=== PATIENT | female | born 1975 | race Caucasian/White ===

== ENCOUNTER 2025-04-10 13:23 | Emergency (ER) | payer SELFPAY ==
[2025-04-10 13:37] VITALS: BP 114/63; PULSE 76; RESP 20; TEMP 36.7; O2SAT 98
--- NOTE | 2025-04-10 14:40 | W.ED.BACK ---
HPI - Back Pain/Injury General: Chief Complaint: Back Pain/Injury Stated Complaint: back pain Time Seen by Provider: 04/10/25 14:31 Source: patient Mode of arrival: ambulatory Limitations: no limitations History of Present Illness: Patient is a 49-year-old female with chronic back pain. She states over the past week her back pain has increasingly gotten worse. Says that the pain progressively gets worse throughout the day, she has shooting pains down her left leg, and tingling down her right leg following the L5 dermatome. 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 She denies injury to her back, saddle anesthesia, urinary/bowel incontinence, weakness in her lower extremities, redness/swelling or color changes in her lower extremities. She is able to ambulate fine. She has a history of an L5-S1 spinal fusion in 2010. Has an appointment with her PCP on to try and get established with a pain management clinic. MD elicited complaint: back pain Pertinent past history: prior back pain and back surgery (L5-S1 fusion) Onset (ago): week(s) (approx. 1 week ago) Timing: progressively worsening Severity: moderate Similar Symptoms Previously: Yes Quality: sharp (down L leg), dull, aching and tingling (down R leg) Location: lumbar spine Radiation: left upper leg, right upper leg, left leg below the knee and right leg below the knee Exacerbating factors: movement and walking Relieving factors: none Associated symptoms: Reports no associated symptoms; Deny abdominal pain, chills, difficulty walking, fatigue, fever(s), nausea or vomiting Work related injury: No Related Data Previous Rx's ?Medication ?Instructions ?Recorded hydrocodone 5 mg-acetaminophen 325 1 tab PO .q 6-8 PRN pain #10 tabs 04/10/25 mg tablet methocarbamol 500 mg tablet 1,000 mg (2 x 500 mg) PO Q8H #30 04/10/25 tabs methylprednisolone 4 mg tablets in See Rx Instructions PO .COMPLEX 04/10/25 a dose pack (Medrol (Alexander)) #21 ea Allergies Allergy/AdvReac Type Severity Reaction Status Date / Time bupropion (From Wellbutrin) Allergy Unknown Verified 04/10/25 13:36 latex Allergy Unknown Verified 04/10/25 13:36 tramadol Allergy ALGY-Rash Verified 04/10/25 13:36 Review of Systems Const: Denies: fever(s), chills, body aches, change in appetite, change in weight, fatigue, malaise or night sweats Card: Denies: chest pain, palpitations or lightheadedness Resp: Denies: dyspnea, productive cough or pain on inspiration GI: Denies: abdominal pain, nausea or vomiting : Denies: flank pain or difficulty voiding Musc: Reports: back pain (lumbar back pain ), extremity pain (sharp pain down L leg) and other (burning/tingling down R leg); Denies: neck pain, extremity swelling, joint pain, joint swelling, limited range of motion or muscle weakness Neuro: Denies: headache(s), numbness in extremities, weakness in extremities, difficulty walking or dizziness Physical Exam Const: COMMON NORMALS: no acute distress, average body habitus, patient oriented x3, healthy appearing, alert and well nourished GENERAL APPEARANCE: cooperative ORIENTATION/CONSCIOUSNESS: Yes awake, Yes oriented to person, Yes oriented to place and Yes oriented to time HENMT: COMMON NORMALS: normocephalic and atraumatic HEAD & SCALP: normal to inspection, normocephalic and atraumatic Neck/C-Spine: COMMON NORMALS: full ROM GENERAL: Yes normal visual inspection and Yes trachea midline CERVICAL SPINE: Yes cervical ROM normal Chest: COMMONS NORMALS: normal inspection of the chest CHEST: Yes Symmetrical chest wall rise Resp: COMMON NORMALS: normal respiratory effort and No use of accessory muscles EFFORT & INSPECTION: Yes symmetric chest movement Cardio: COMMON NORMALS: regular rate and regular rhythm RATE: regular rate RHYTHM: regular rhythm : COMMON NORMALS: Yes no CVA tenderness BLADDER/KIDNEY EXAM: Yes no CVA tenderness Back/Pelvis: COMMON NORMALS: no CVA tenderness THORACIC SPINE/UPPER BACK: Yes normal to inspection, Yes thoracic ROM normal and No thoracic spinal tenderness LUMBAR SPINE/LOWER BACK: Yes pain with ROM, Yes lumbar spinal tenderness and Yes other soft tissue findings (scar midline from previous surgery) PELVIS: Yes buttocks normal SACRUM: no tenderness COCCYX: no tenderness Extremity: COMMON NORMALS: normal to inspection, full ROM, capillary refill normal, no clubbing, cyanosis or edema and no calf tenderness GENERAL: Yes normal exam except as noted RIGHT LOWER EXTREMITY: Yes lower leg (admits to tingling down leg, neurovascular intact) Right lower leg: Yes inspection (normal), Yes palpation (normal), Yes neurovascular exam (normal) and Yes other LEFT LOWER EXTREMITY: Yes lower leg (admits to pain w walking down L leg) Left lower leg: Yes inspection (normal), Yes palpation (normal) and Yes neurovascular exam (normal) Neuro: COMMON NORMALS: patient oriented x3, moves all extremities, no focal motor deficits, no sensory deficits noted and gait normal SENSORIUM/ORIENTATION: Yes alert, Yes oriented to person, Yes oriented to place and Yes oriented to time MOTOR EXAM: 5/5 motor strength present throughout Skin: COMMON NORMALS: no rashes or lesions noted GENERAL SKIN EXAM: no rashes or lesions noted Course Vital Signs: Vital signs: Vital Signs Temperature 98.0 F 04/10/25 13:37 Pulse Rate 76 04/10/25 13:37 Respiratory Rate 20 H 04/10/25 13:37 Blood Pressure 114/63 04/10/25 13:37 Pulse Oximetry 98 04/10/25 13:37 MDM - Back Pain/Injury Medical Decision Making Patient has no red flags on history or physical examination. I do not feel emergent imaging would ultimately change much management at this time. She does have follow-up with primary care on . Had initially prescribed her ibuprofen, methocarbamol, and steroids. Patient asking for stronger pain medications as she has been taking ibuprofen at home without much relief. She has an allergy to tramadol. Will prescribe her a very small amount of pain medications that can get her to her primary care appointment. Medical Records I reviewed the patient's medical records. No radiology studies performed this visit Discharge Plan Discharge Patient Disposition: Home Clinical Impression: Acute on chronic low back pain Condition: Stable Prescriptions: New methocarbamol 500 mg tablet 1,000 mg PO Q8H Qty: 30 0RF methylprednisolone [Medrol (Alexander)] 4 mg tablets,dose pack See Rx Instructions .ROUTE .COMPLEX Qty: 21 0RF Rx Instructions: orally per package directions hydrocodone-acetaminophen 5-325 mg tablet 1 tab PO .q 6-8 PRN (Reason: pain) Qty: 10 0RF Discharge Orders: Discharge ED (Routine); Ordered 04/10/25 Ordered By: Soraya Morales Patient Instructions: Patient Portal & Julien Instructions Activity Restrictions/Additional Instructions: Please follow-up at the [facility] on as scheduled. You may fill the prescribed medications over the next several days to hopefully improve your back discomfort. You may also use ice and heat. Limit lifting is much as possible. Print Language: Malaysian Coding Level of Care Code ED Purchasing And Claims Supervisor for Chilango Perry
[2025-04-10] MEDS: orphenadrine 30 mg/mL Inj 2 mL 60 MG IM (15:41)
[2025-04-10] MEDS: ketorolac 60 mg/2 mL INJ IM (15:41)
[2025-04-10] MEDS: dexamethasone 10 mg/mL INJ 8 MG IM (15:41)
[2025-04-10] MEDS: HYDROmorphone 0.5 MG/0.5 ML INJ 1 MG IM (16:30)
== END 2025-04-10 16:46 | disposition home or self-care (01) ==
PROVIDERS: Emergency Provider Physician Assistant
DX: M54.50 Low back pain, unspecified (principal)
CPT/HCPCS: 96372; 99284; J1100; J1171; J1885; J2360

== ENCOUNTER → 2025-04-17 13:30 | Outpatient (BNVA) | payer SELFPAY | PROVIDERS: PCP Family Medicine; Visit Provider Family Medicine | DX: Z11.59 Encounter for screening for other viral diseases (principal); Z11.4 Encounter for screening for human immunodeficiency virus [HIV] | CPT/HCPCS: 80053; 80061; 84443; 85025; 86803; 87806 ==

== ENCOUNTER 2025-06-11 11:18 | Emergency (ER) | payer BC, MEDICAID, SELFPAY ==
--- OUTSIDE RECORDS SUMMARY | 2020-04-02 04:54 | XMS_ITS | Continuity of Care Document ---
Author Organization [facility] Address [address] [place] [address] Phone Care Team Providers Care Fire Prevention Inspector Name Role Phone Pushpa URIAH CLUB ATTENDANT-Luis Eduardo Kathy Unavailable Unava ilable Allergies, Adverse Reactions, Alerts Substance Reaction Status Criticality BUPROPION HCL RashRash Active No Information latex Rash Active No Information codeine Rash Active No Information Medications Medication Instructions Dosage Effective Dates (start - stop) Status Comments cyclobenzaprine 10 mg tablet take 1 tablet by oral route 3 times every day 10 MG - Active gabapentin 300 mg capsule take 2 capsule by oral route 3 times every day 600 MG - Active VITAMIN D 2000 IU TAB TAKE 1 TABLET BY MOUTH EVERY DAY 1 tablet - Active SIMVASTATIN 20MG TAB TAKE 1 TABLET BY MOUTH EVERY EVENING - Active SERTRALINE 50MG TAB TAKE 1 TABLET BY MOUTH EVERY DAY - Active metformin 500 mg tablet take 1 tablet by oral route 2 times every day with morning and evening meals 500 MG - Active hydroxyzine HCl 25 mg tablet take 1 tablet by oral route 3 times every day as needed 25 MG - Active diclofenac sodium 75 mg tablet,delayed release take 1 tablet by oral route 2 times every day 75 MG - Active duloxetine 60 mg capsule,delayed release take 1 capsule by oral route every day - Active gabapentin 300 mg capsule take 2 capsule by oral route 3 times every day 600 MG - No Longer Active cyclobenzaprine 10 mg tablet take 1 tablet by oral route 3 times every day 10 MG - No Longer Active Procedures Procedure Date PSYCH DIAGNOSTIC EVALUATION Completion Of The DLA-20 Assessment OFFICE/OUTPATIENT VISIT, EST ROUTINE VENIPUNCTURE COMPLETE CBC W/AUTO DIFF WBC COMPREHEN METABOLIC PANEL GLYCATED HEMOGLOBIN TEST ASSAY THYROID STIM HORMONE LIPID PANEL ASSAY OF VITAMIN D OFFICE/OUTPATIENT VISIT, EST IMMUNIZATION ADMIN CCIIV4 VAC NO PRSV 0.5 ML IM OFFICE/OUTPATIENT VISIT, EST PREV VISIT, NEW, AGE 18-39 OFFICE/OUTPATIENT VISIT, EST ROUTINE VENIPUNCTURE COMPLETE CBC W/AUTO DIFF WBC COMPREHEN METABOLIC PANEL GLYCATED HEMOGLOBIN TEST ASSAY THYROID STIM HORMONE ASSAY OF VITAMIN D LIPID PANEL Post Op Post Op Extraction, Erupted Tooth Or Exposed Ginny t (Elevati Extraction, Erupted Tooth Or Exposed Ginny t (Elevati Local Anesthesia OFFICE/OUTPATIENT VISIT, EST PSYCH DIAG EVAL W/MED SRVCS Comprehensive Evaluation Caries Risk Assessment And Documentation High Risk Panoramic Film Intraoral Complete Series OFFICE/OUTPATIENT VISIT, EST OFFICE/OUTPATIENT VISIT, NEW Advance Directives Directive Yes / No Effective Date File Name No Information Encounters Encounter Description Practice Location Reason(s) For Visit Diagnoses Date Provider Providers Copied on Encounter [facility], [address], [place], [id number], [place] tel:[phone] [facility] No Information 0 Pushpa Chavez. [address] [place] [address] [address], [id number] [place], [id number], [place]. tel: [phone] [facility], [address], [place], [place], [id number], [place] tel:[phone] [facility] No Information 0 [facility]. [address] [facility] [address], [id number] 0, [place], [place], [id number], [place]. tel:[phone] PSYCH DIAGNOSTIC EVALUATION [facility], [address], [place], [place], [id number], [place] tel:[phone] [facility] Post-traumat ic stress disorderMajo r depressive disorder, recurrent severe without psychotic featuresCann abis use disorder, moderateGene ralized anxiety disorder 0 Romaine Judd. [address], [place], [place], [id number], [place]. tel:[phone] Referring Provider: Binta Gavin, [address], [place], [address]. tel:[phone] [facility], [address], [place], [place], [id number], [place] tel:[phone] [facility] No Information 0 Mahan Kathy. [address] [place] [address] [address], [id number] 0, [place], [place], [id number], [place]. tel:[phone] [facility], [address], [place], [place], [id number], [place] tel:[phone] [facility] No Information 0 Mahan Kathy. [address] [facility] [address], [id number] 0, [place], [place], [id number], [place]. tel:[phone] [facility], [address], [place], [place], [id number], [place] tel:[phone] [facility] No Information 0 [facility]. [address] [facility] [address], [id number] 0, [place], [id number], [place]. tel: [phone] [facility], [address], [place], [place], [id number], [place] tel:[phone] [facility] lab management (chief complaint) Vitamin D deficiencyHy perlipidemia , unspecified 9 Tasiasulma Chavez. [address] [place] [address] 212, [id number] 0, [place], [id number], [place]. tel: [phone] OFFICE/OUTPA TIENT VISIT, EST [facility], [address], [place], [place], [id number], [place] tel:[phone] [facility] Provider Note- H Pushpa CLUB ATTENDANT-C (chief complaint)W eight Management (chief complaint) Body mass index (BMI) 33.0-33.9, adultLumbago Pain in right shoulderGene ralized Anxiety DisorderToba accountant controller use 9 Tasiasulma Chavez. [address] [place] [address], [id number] 0, [place], [id number], [place]. tel: [phone] Referring Provider: Kathy Barrow, [address] [place] [address] [id number] [place], [address]. tel: [phone] OFFICE/OUTPA TIENT VISIT, EST [facility], [address], [place], [place], [id number], [place] tel:[phone] [facility] follow up (chief complaint)P rovider Note- H Pushpa CLUB ATTENDANT-C (chief complaint) Body mass index (BMI) 31.0-31.9, adultTobacco useLumbagoPa in in right shoulder 9 Tasiasulma Chavez. [address] [place] [address] 212, [id number] 0, [place], [id number], [place]. tel: [phone] Referring Provider: Kathy Barrow, [address] [place] [address] 212 [id number] [place], [address]. [phone] [facility], [address], [place], [id number], [place] tel:[phone] [facility] Lumbago 9 Pushpa Chavez. [address] [place] [address] [address], [id number] [address] [place] [address], [id number], [place]. [phone] OFFICE/OUTPA TIENT VISIT, EST [facility], [address], [place] [id number], [place] tel:[phone] [facility] Follow up (chief complaint)P eder Note- H Pushpa CLUB ATTENDANT-C (chief complaint) Body mass index (BMI) 28.0-28.9, adultGeneral ized Anxiety DisorderLumb agoPain in right shoulder 9 Tasiasulma Carterher. [address] [place] [address] [address], [id number] [address] [place] [address], [id number], [place]. tel:[phone] Referring Provider: Kathy Barrow, [address] [place] [address] [address] [id number] [place], [address]. tel:[phone] PREV VISIT, NEW, AGE 18-39 [facility], [address], [place], [id number], [place] tel:[phone] [facility] well woman (chief complaint) Body mass index (BMI) 29.0-29.9, adultTobacco useEncntr screen mammogram for malignant neoplasm of breastEncntr for retail loss prevention officer exam (general) (routine) w/o abn findings 9 Olya Jarquin. [address], [id number] 0, [place], [id number], [place]. tel:[phone] Referring Provider: Britton Dobson, [address] [id number] , [place], [address]. tel:[phone] OFFICE/OUTPA TIENT VISIT, EST [facility], [address], [place], [place], [id number], [place] tel:[phone] [facility] establish care (chief complaint)P eder Note- H Pushpa CLUB ATTENDANT-C (chief complaint) Body mass index (BMI) 27.0-27.9, adultLumbago Generalized Anxiety DisorderPers onal history of Ca of other part of uterus Sep-0 9 Pushpa Chavez. [address] [place] [address] 212, [id number] [facility], [place], [id number], [place]. [phone] Referring Provider: Kathy Dozierbandar, [address] [place] [address] 212 [id number] , [place], [address]. tel:[phone] [facility], [address] [place] [address] ons [facility], [place], [place], [id number], [place] tel:[phone] [facility] Encounter for dental exam and cleaning w/o abnormal findings 0 8 Hilario Portillo. [address] [facility] [address], [id number] 0, [place], [id number]. tel:[phone] Referring Provider: Lindsey Rich, [address] [place] [address] 212 [id number] , [place], [address]. tel:[phone] [facility], [address] [place] [address] ons [facility], [place], [place], [id number], [place] tel:[phone] [facility] Encounter for dental exam and cleaning w/o abnormal findings 0 8 Hilario Portillo. [address] [place] [address] [address], [id number] 0, [place], [id number]. tel:[phone] Referring Provider: Lindsey Rich, [address] [place] [address] 212 [id number] [place], [address]. tel:[phone] [facility], [address], [place], [place], [id number], [place] tel:[phone] [facility] Encounter for dental exam and cleaning w/o abnormal findings 8 Hilario Portillo. [address] [place] [address] [address], [id number] 0, [place], [id number]. tel:[phone] Referring Provider: Lindsey Rich, [address] [place] [address] [address] [id number] , [place], [address]. tel:[phone] OFFICE/OUTPA TIENT VISIT, EST [facility], [address], [place], [place], [id number], [place] tel:[phone] [facility] Follow up (chief complaint) Body mass index (BMI) 29.0-29.9, adultLumbago 8 Chito Marshall. [address] [place] [address] [address], [id number] 0, [place], [id number], [place]. tel: [phone] Referring Provider: Joanna Dale, [address] [place] [address] 212 [id number] [place], [address]. tel: [phone] PSYCH DIAG EVAL W/MED SRVCS [facility], [address], [place], [place], [id number], [place] [phone] [facility] Post-traumat ic stress disorderMajo r depressive disorder, recurrent severe without psychotic featuresCann abis use disorder, moderate 8 Aristides Coreasew. [address] [place] [address] [address], [id number] 0, [place], [id number], [place]. tel: [phone] Referring Provider: Joanna Dale, [address] [place] [address] 212 [id number] [place], [address]. tel:[phone] [facility], [address], [place], [place], [id number], [place] tel:[phone] [facility] Encounter for dental exam and cleaning w/o abnormal findings 8 Hilario Portillo. [address] [place] [address] [address], [id number] 0, [place], [id number]. tel:[phone] Referring Provider: Melany Duran, [address] [facility] [facility], [place], [address]. tel:[phone] ing Provider: Melany Duran, [address] [facility], [place], [address]. tel:[phone] OFFICE/OUTPA TIENT VISIT, [facility], [address] [facility], [place], [place], [id number], [place] tel:[phone] [facility] Back check up (chief complaint)a nxiety (chief complaint) Body mass index (BMI) 30.0-30.9, adultGeneral ized Anxiety DisorderLumb ago with sciatica, unspecified side Chito Marshall. [address] [place] [address], [id number] [address] [place] [address] [place], [id number], [place]. [phone] Referring Provider: Joanna Dale [address] [place] [address] [id number] [place], [address]. tel:[phone] OFFICE/OUTPA TIENT VISIT, [facility], [address] [place] [address] ons [facility], [place], [place], [id number], [place] tel:[phone] [facility] URI (chief complaint)p ain in back (chief complaint) Body mass index (BMI) 28.0-28.9, adultUpper respiratory infection NOSFracture of tooth, initial encounter for open fractureLumb ago Chito Marshall. [address] [place] [address], [id number] [address] [place] [address], [id number], [place]. tel:[phone] Referring Provider: Joanna Dale [address] [place] [address] [id number] [place], [address]. [phone] Family History Family Member Type Diagnosis Age At Onset Mother Problem (finding) malignant neoplasm of b one Mother Problem (finding) bowel obstruction leadi ng to rupture Mother Problem (finding) rheumatoid arthritis Father Problem (finding) Allergies Maternal aunt Problem (finding) various kinds in diffe rent aunts Mother Problem (finding) malignant neoplasm of u rinary bladder Father Problem (finding) stomach ulcers Maternal uncle Problem (finding) various cancer Sister Problem (finding) heart issues Immunizations Vaccine Date Status Comments Flu Vaccine 4 yrs and older administered Source: New Immunization Record Payers Payer name Insurance type Covered democrat ID Authoriza tion(s) No Information Social History Type Description Quantity Date Captured Comments Sex Female Smoking Status No Information Sexual Orientation Straight or heterosexual Gender Identity Female Chief Complaint And Reason For Visit No Information Reason For Referral Reason For Referral No Information Plan Of Treatment Date Type Action Status Goal Depression scree chloe. Due on due Goal HPV, high+low-ri sk. Due on due Goal Diabetes screeni ng. Due on due Goal Tdap. Due on due Goal Influenza vaccin e. Due on due Goal Td vaccine. Due on due Goal Pap/HPV testing. Due on due Goal Influenza vaccin e. Due on due Goal Pap/HPV testing. Due on due Goal Diabetes screeni ng. Due on due Goal Td vaccine. Due on due Goal Depression scree chloe. Due on due Goal Tdap. Due on due Goal HPV, high+low-ri sk. Due on due Goal HPV, high+low-ri sk. Due on due Goal Depression scree chloe. Due on due Goal Influenza vaccin e. Due on due Goal Pap/HPV testing. Due on due Goal Diabetes screeni ng. Due on due Goal Td vaccine. Due on due Goal Tdap. Due on due Goal Pap/HPV testing. Due on due Goal Tdap. Due on due Goal Diabetes screeni ng. Due on due Goal Influenza vaccin e. Due on due Goal Depression scree chloe. Due on due Goal HPV, high+low-ri sk. Due on due Goal Td vaccine. Due on due Goal Tobacco cessation counseling completed Goal HPV, high+low-ri sk. Due on due Goal Diabetes screeni ng. Due on due Goal Depression scree chloe. Due on due Goal Tdap. Due on due Goal Pap/HPV testing. Due on due Goal Influenza vaccin e. Due on due Goal Td vaccine. Due on due Goal Tobacco cessation counseling completed Goal Dietary manageme nt education, guidance, and counseling completed Goal Td vaccine. Due on due Goal Diabetes screeni ng. Due on due Goal HPV, high+low-ri sk. Due on due Goal Tdap. Due on due Goal Pap/HPV testing. Due on due Goal Influenza vaccin e. Due on due Goal Depression scree chloe. Due on due Goal Depression scree chloe. Due on due Goal Influenza vaccin e. Due on due Goal Tdap. Due on due Goal HPV, high+low-ri sk. Due on due Goal Td vaccine. Due on due Goal Diabetes screeni ng. Due on due Goal Pap/HPV testing. Due on due Goal Tdap. Due on due Goal Td vaccine. Due on due Goal Depression scree chloe. Due on due Goal HPV, high+low-ri sk. Due on due Goal Diabetes screeni ng. Due on due Goal Pap/HPV testing. Due on due Goal Influenza vaccin e. Due on due Goal Dietary manageme nt education, guidance, and counseling completed Goal Tobacco cessation counseling completed Goal Dietary manageme nt education, guidance, and counseling completed Goal Tobacco cessation counseling completed Goal Pap/HPV testing. Due on due Goal Influenza vaccin e. Due on due Goal HPV, high+low-ri sk. Due on due Goal Diabetes screeni ng. Due on due Goal Td vaccine. Due on due Goal Tdap. Due on due Goal Depression scree chloe. Due on due Goal Lifestyle educat ion regarding diet completed Goal Pap/HPV testing. Due on due Goal Tdap. Due on due Goal Influenza vaccin e. Due on due Goal Depression scree chloe. Due on due Goal Td vaccine. Due on 18 due Goal Dietary manageme nt education, guidance, and counseling completed Goal Tdap. Due on due Goal Pap/HPV testing. Due on due Goal Influenza vaccin e. Due on due Goal Depression scree chloe. Due on due Goal Td vaccine. Due on 18 due Goal Tobacco cessation counseling completed Goal Dietary manageme nt education, guidance, and counseling completed Goal Tobacco cessation counseling completed Goal Dietary manageme nt education, guidance, and counseling completed Referral Referred To: [facility] Ordered: Referrals: Obstetrics. [facility] Appointment date/timeframe: 07/11/2019 ordered Referral Referred To: [address], [address] [id number] Ordered: Referrals: Pain Medicine. [facility]. Evaluate and treat Appointment date/timeframe: 12/13/2017 ordered Referral Ordered: MRI LUMBAR SPINE W/O DYE ordered Referral Referred To: Renzo Irving APRN [address] [place] [address]
[address], [phone] Ordered: Referrals: Psychiatry. Renzo Irving APRN. Evaluate and treat ordered Future Order: Radiology Order SC R MAMMO BI INCL CAD ([id number]), Added on: New History Of Present Illness Encounter Date Complaint History Of Prese nt Illness lab management Weight Management Presents today to discus weight management. Provider Note- H Pushpa Zaragzoa resent clinic today to follow-up on her back pain, right shoulder pain, anxiety. Patient reports she has started taking an herbal supplement called Kratum and since that time the patient feels her pain has improved significantly. Patient reports that her anxiety is also better since taking this herbal supplement. Patient reports she is no longer having to take the hydroxyzine. Patient denies headache, chest pain, palpitations, shortness of breath, nausea, vomiting, diarrhea, constipation. Patient would like to discuss weight loss. Patient reports she knows her pain will improve even more if she could lose weight. Patient reports she cannot lay off the sweets. Patient reports she does try to eat fruits and vegetables and does eat a large amount of meat. Patient reports she does not ingest a lot of carbohydrates. Patient reports she does find foods and uses canola oil. Patient reports she has tried Ally in the past for weight loss before. Patient also reports she has tried phentermine in the past before. Patient reports it is hard in the wintertime to increase her physical activity levels. follow up Pt is present to day for a follow up on lumbago and shoulder painPt states Meloxicam is not helping and she keeps getting shooting pains down her leg. Pt states her shoulder pain is still there.Pt is also c/o trouble sleeping from the pain because it wakes her up 5-6 times a night. Provider Note- Julia Zaragoza stephanie presents to clinic today for follow-up on her low back pain and shoulder pain. Patient reports she is taking the meloxicam as prescribed and still is getting shooting pains in her back and down her left leg. Patient does report the shoulder pain is still there. Patient reports she is currently taking gabapentin 300 mg 3 times a day. Patient reports she tried the Cymbalta for 2 weeks and felt did not help. Patient is reporting taking the cyclobenzaprine 3 times a day. Patient reports she is close to getting her disability/Medicaid approved. At that time patient would like referral to orthopedics/pain clinic/physical therapy. Patient reports she is tired of feeling and pain all the time. Provider Note- Julia Zaragoza stephanie presents to clinic today to follow-up on her anxiety and back pain. Patient was started on sertraline and hydroxyzine approximately 1 month ago. Patient reports significant improvement in her anxiety symptoms. Patient reports that she is noticing that she does not have to take the hydroxyzine as much as she used to. Patient reports sometimes she takes it once a day sometimes she does not need to take it at all. Patient has had 3 back surgeries in the past. Patient does report numbness and tingling in her extremities secondary to those surgeries. Patient reports that her right hand is having more numbness and she can't tell how tight she's gripping on things with her left hand. Patient does report however more decreased sensation on her left side in general. Patient reports she has not had imaging done on her back for greater than 2 years. Patient does report she has not lost any range of motion with back surgeries. Patient is currently taking the gabapentin as prescribed but feels it is not helping. Patient reports her back pain is gotten worse. Patient reports she has trouble moving at times because of the pain. Patient reports she feels extremely stiff. Patient feels that she needs to have something other than the gabapentin for medication. Patient does not have insurance and cannot afford surgery/orthopedics/physical therapy at this time. Patient does report she is attempting to get disability and Medicaid. Patient reports if she gets approved she would like a referral to orthopedics and further imaging. Patient does report that she was told by orthopedics in the past that surgery would more than likely not be possible on her back secondary to that previous surgeries that she has had. Patient reports that she is noticing a significant amount of pain in her right shoulder in the joint. Patient does have full range of motion however reports that she has significant tenderness with motion. Patient reports that she bends her head backwards it will send sharp shooting pain down to her right arm. Patient does report she has tried physical therapy in the past and has had no improvement. She reports she still does exercises at home. Patient does report that the pain is so bad sometimes it causes nausea and vomiting. Patient describes the pain occasionally a sharp stabbing and can take her breath away. Patient is noticing that she is stripping more frequently and dropping things. Patient does report that her right shoulder pops frequently Patient denies nausea, vomiting, diarrhea, constipation, chest pain, shortness of breath. Follow up Patient presents today for a follow up on medication for pain as well as anxiety. well woman Pt is present to day for a well woman exam. Pt states she does not have a period anymore and she has had her uterus taken out. Patient is a 43yo who presents today for a wellness exam. She reports that she has a history of uterine cancer . She had a TVH performed at [facility] [address] Dhillon. She states she is feeling well otherwise. She denies any abnormal bleeding. She has a history of 2 vaginal deliveries with her largest being 9#10 oz. She thinks she has her ovaries. She otherwise reports a family history of ovarian cancer and breast cancer. Last mammogram in 2015 establish care Patient presents to establish care. Stated having some anxiety. States that she has chronic back issues. Provider Note- Julia TIM S he presents to clinic today to establish care. Patient is very concerned about her increasing anxiety. She has severe social anxiety. Patient has previously been on benzos for her anxiety. Patient reports that her anxiety is so bad she nearly passes out at gnosticism. Patient reports she gets short of breath and tachycardic with her anxiety and panic attacks. She does report she notices chest pain/palpitations with anxiety attacks as well. She reports she is noticing she's fidgeting a lot and cannot sit still. Patient has previously been treated with Zoloft before when she was younger and felt that it did help. Patient does report a history of uterine cancer and had her uterus removed. Patient reports she notices some slight lower abdominal tenderness like she did with her uterine cancer. We'll defer to be seen by gynecology. Patient has had 3 back surgeries in the past. Patient does report numbness and tingling in her extremities secondary to those surgeries. Patient reports that her right hand is having more numbness and he can't tell how tight she's gripping on things with at hand. Patient does report however more decreased sensation on her left side in general. Patient reports she has not had imaging done on her back for greater than 2 years. Patient does report she has not lost any range of motion with back surgeries. Patient does report chronic constipation. Patient reports she'll take an [id number] laxative and it will help. Patient does report. Patient denies other medical concerns at this time. Follow up Review MRI resul ts. Told her nothing was new on the MRI since 2014. We are working on Dr. Everett referral. She said she's had injections before and it didn't do anything. We have not received the [facility] records yet and that is where she had surgery. She's also been to [facility].Also has a sore jaw and got Amoxil 250 but that hasn't been enough. Will give her 500 to get rid of the infection so her tooth can be pulled. anxiety The patient does not present with depressed mood or diminished interest or pleasure. Additional information: States her anxiety has been through the roof. Says pain contributes to it. Back check up Pt presents topawel talbot for back pain. Pt states that her back has been hurting for some time now. She says the Relafen isn't helping her. She says she had PT at [facility] for years . Weather being cold makes it worse. Says she can't sleep, can't breath and it makes her on edge. says her leg gives out and her pain is so severe. Last MRI didn't show anything severe that is impinging her nerves or canal (2014). Says she has tried everything like gabapentin, baclofen, flexeril, methocarbamol, lyrica, relafen, Cymbalta, Dilaudid, Tylenol 3&4, tramadol, hydrocodone. URI The patient pres ents with cough. Additional information: chest congestion of nose and chest and cough of yellow/green for 1 week. Tried: Mucinex, Nyquil day and night. No fever she knows of, nasal drainage clear. Doesn't think she has allergies.Has had 3 back surgeries but does not take medications at this time for that.Changing to PCP here. pain in back Boyfriend says s he has bad pain. He gets anxiety from that. She has been on narcotics and says that ibuprofen, naproxen, and multiple other things didn't work for her. Doesn't think she has tried Relafen. Functional Status Date Functional Assessmen t No Information Instructions Date Instruction Additional Infor kailash Start patient on simvastatin 20 mg daily Related to Hyperlipidemia, unspecified Start patient on a d aily vitamin D 3 supplement Related to Vitamin D deficiency Discussed the risks of weight loss medications. Patient has heard people who have lost weight utilizing metformin and would like to try that.Start the patient on metformin 500 mg twice a dayDiscussed side effects of metforminEncouraged patient to increase her physical activity levels and work on lifestyle modifications for weight loss. Related to Body mass index (BMI) 33.0-33.9, adult Continue to monitor. Obtain a TSH and vitamin D level in the office today.Notify patient of results and modify plan based on findingsReturn to care 3 months. Related to Generalized Anxiety Disorder See plan for diagnosis # 1 Relat ed to Pain in right shoulder Explained to patient that she needs to use caution when using an herbal supplement that is untested by the FDA, as we don't know what effects it has on organ systems in the body and if it is addictive.Obtain a CBC, CMP in the office today to assess kidney and liver function since starting on this untested herbal supplement.Notify patient of results and modify plan based on findings.Return to care 3 months. Related to Lumbago Giving encouragement to exercise Related to Body mass index (BMI) 33.0-33.9, adult Dietary needs education Related to Body mass index (BMI) 33.0-33.9, adult See plan for diagnosis # 1 Relat ed to Pain in right shoulder Continue with Cymbal ta 60 mg by mouth daily.Increase gabapentin 600 mg 3 times a day.Continue cyclobenzaprine 10 mg 3 times a day.Discontinue meloxicam. Start patient on diclofenac 75 mg twice a day.Patient reports that she is close to getting her disability/Medicaid approved. At that time patient would like a referral to orthopedics last physical therapy/pain clinic. return to care 3 months. Related to Lumbago Giving encouragement to exercise Related to Body mass index (BMI) 31.0-31.9, adult Dietary management e ducation, guidance, and counseling Related to Body mass index (BMI) 31.0-31.9, adult Start patient on Cym phoenix 60 mg by mouth daily for muscular skeletal pain Related to Lumbago See plan for diagnos is #2.If patient gets approved for Medicaid/disability consider MRI of the shoulder and referral to orthopedics. Related to Pain in right shoulder Administered Toradol 60 mg IM the office today.Start patient on meloxicam 15 mg by mouth daily.Start patient on prednisone 50 mg daily 5 days.Continue to monitor.Return to care 1 month. Related to Lumbago Continue with sertra line as prescribed.Continue with hydroxyzine as prescribed.Continue to monitor. Related to Generalized Anxiety Disorder Dietary management e ducation, guidance, and counseling Related to Body mass index (BMI) 29.0-29.9, adult Giving encouragement to exercise Related to Body mass index (BMI) 29.0-29.9, adult Dietary management e ducation, guidance, and counseling Related to Body mass index (BMI) 28.0-28.9, adult Giving encouragement to exercise Related to Body mass index (BMI) 28.0-28.9, adult Refer patient to Dr Dobson in this clinic for well woman exam Related to Personal history of Ca of other part of uterus Refill gabapentin 30 0 mg 3 times a day.Continue to monitor. Related to Lumbago Start patient on ser traline 50 mg by mouth daily.Start patient on hydroxyzine 25 mg 3 times a day as needed for anxiety.Obtain a CBC, CMP, lipid panel, hemoglobin A1c, vitamin D, TSH in the office today.Notify patient of results in modify plane based on findings.Refer patient to behavioral health.Return to care 1 month for reevaluation. Related to Generalized Anxiety Disorder Lifestyle education regarding di et Related to Body mass index (BMI) 27.0-27.9, adult Dietary management e ducation, guidance, and counseling Related to Body mass index (BMI) 29.0-29.9, adult Giving encouragement to exercise Related to Body mass index (BMI) 29.0-29.9, adult Dietary management e ducation, guidance, and counseling Related to Body mass index (BMI) 30.0-30.9, adult Giving encouragement to exercise Related to Body mass index (BMI) 30.0-30.9, adult Giving encouragement to exercise Related to Body mass index (BMI) 28.0-28.9, adult Dietary management e ducation, guidance, and counseling Related to Body mass index (BMI) 28.0-28.9, adult Assessments Type Assessment Date No Information Patient Care Teams Name Effective Dates (start - stop) Status Members No Information
[2025-06-11 11:52] VITALS: BP 113/69; PULSE 64; RESP 17; TEMP 36.6; O2SAT 98; BMI 26.6
--- NOTE | 2025-06-11 12:04 | ED_ITS ---
HPI - Dental/Oral 2 General: Chief complaint: Dental/Oral Stated complaint: poss tooth infection Time Seen by Provider: 06/11/25 11:47 Source: patient Mode of arrival: ambulatory Limitations: no limitations History of Present Illness: Patient is a nice 49-year-old female here for complaints of dental pain and concern for infection. She states a left upper tooth began bothering her a few days ago. She feels like the gingiva surrounding the tooth is swollen. She has not noticed any facial swelling. She is not having any severe headache. No neck pain. No fevers. She states she recently got [place] Medicaid and has currently searching for a dentist. MD Complaint: tooth pain Teeth map: 1. Onset (ago): day(s) Duration: constant Severity: severe Relieving factors: nothing Exacerbating factors: nothing Context: poor dental care Associated symptoms: Reports no associated symptoms; Denies ear or mastoid pain or fever(s) Treatment prior to arrival: oral analgesic Related Data Previous Rx's ?Medication ?Instructions ?Recorded chlorhexidine gluconate 0.12 % 15 ml buccal BID #473 m L 06/11/25 mouthwash (Peridex) hydrocodone 5 mg-acetaminophen 325 1 tab PO Q6H PRN pa in #8 tabs 06/11/25 mg tablet penicillin V potassium 500 mg 500 mg PO Q8H 7 days #21 tabs 06/11/25 tablet Allergies Allergy/AdvReac Type Severity Reaction Status Date / Time bupropion (From Wellbutrin) Allergy Unknown Verified 06/11/25 11:57 latex Allergy Unknown Verified 06/11/25 11:57 tramadol Allergy ALGY-Rash Verified 06/11/25 11:57 Review of Systems 2 Const: Denies: fever(s), chills, body aches, fatigue or malaise Eyes: Denies: change in vision or blurry vision ENMT: Reports: dental pain; Denies: ear or mastoid pain or sinus pain Card: Denies: chest pain GI: Denies: nausea or vomiting Musc: Denies: neck pain Neuro: Denies: headache(s) PFSH ED 2 PFSH: Social History Smoking and tobacco/nicotine status: current every day tobacco/nicotine user Physical Exam 2 Const: COMMON NORMALS: no acute distress, average body habitus, patient oriented x3, no limitations, healthy appearing, alert and well nourished G ENERAL APPEARANCE: cooperative HENMT: FACE & SINUS: normal facial exam; no erythema, no edema and no fluctuance MOUTH: Normal oral and palatal mucosa present, lip normal, tongue normal and Normal salivary glands and ducts present TEETH & GINGIVA: Yes poor dentition TEETH & GINGIVA IMAGES: 1. severe widespread decay; gingival edema-no abscess appreciated THROAT: posterior oropharynx normal and tonsils normal Eye: GENERAL EYE: appearance normal, both eyes and all related structures Neck/C-Spine: COMMON NORMALS: no lymphadenopathy GENERAL: Yes normal visual inspection, No anterior neck swelling and No submandibular swelling Neuro: COMMON NORMALS: patient oriented x3 SENSORIUM/ORIENTATION: Yes alert Course 2 Vital Signs: Vital signs: Vital Signs Temperature 98 F 06/11/25 11:52 Pulse Rate 64 06/11/25 11:52 Respiratory Rate 17 06/11/25 11:52 Blood Pressure 113/69 06/11/25 11:52 Pulse Oximetry 98 06/11/25 11:52 Oxygen Delivery Me thod Room Air 06/11/25 11:52 MDM - Dental/Oral Medical Decision Making Patient will be given antibiotics and Peridex as well as a small amount of pain medications. Recommend dental follow-up as soon as possible. Return ED precautions discussed. Differential Diagnosis Likely gingival abscess, dental caries, toothache, dental abscess and fracture of tooth Medical Records I reviewed the patient's medical records. No radiology studies performed this visit Discharge Plan Discharge Patient Disposition: Home Clinical Impression: Infected dental caries Condition: Stable Prescriptions: New chlorhexidine gluconate [Peridex] 0.12 % mouthwash 15 ml BUCCAL BID Qty: 473 0RF Rx Instructions: Swish in mouth 1-2 mins then spit hydrocodone-acetaminophen 5-325 mg tablet 1 tab PO Q6H PRN (Reason: pain) Qty: 8 0RF penicillin V potassium 500 mg tablet 500 mg PO Q8H 7 Days Qty: 21 0RF Discharge Orders: Discharge ED (Routine); Ordered 06/11/25 Ordered By: Soraya Morales Referrals: Bonilla Graff DO [Primary Care Provider, Family Practice] Patient Instructions: Toothache (ED), Mouth Care (ED), Opioid Safety, Pain Management, Patient Portal & Julien Instructions, Dental Abscess Print Language: Danish Coding Level of Care Code ED Brush Finisher for Chilango Perry
== END 2025-06-11 12:45 | disposition home or self-care (01) ==
PROVIDERS: Emergency Provider Physician Assistant; PCP Family Medicine
DX: K02.9 Dental caries, unspecified (principal); K04.7 Periapical abscess without sinus; Z72.0 Tobacco use
CPT/HCPCS: 99283